=== PATIENT | male | born 2000 | race Caucasian/White ===

== ENCOUNTER 2023-04-24 23:21 | Emergency (ER) | payer SELFPAY ==
[~2023-04-24] VITALS: Ht 172.7 cm; Wt 122.5 kg
[2023-04-24 23:46] VITALS: BP_SYST 148; PULSE 88; RESP 18; TEMP 98.3; O2SAT 97
[2023-04-25 00:41] LABS: BASOPHILS # (AUTO) 0.1 K/uL (0.0-0.2); BASOPHILS % (AUTO) 0.4 % (0.0-2.0); EOSINOPHILS # (AUTO) 0.1 K/uL (0.0-0.4); EOSINOPHILS % (AUTO) 0.5 % (0.0-4.0); HEMATOCRIT 44.4 % (36-54); HEMOGLOBIN 14.6 g/dL (14.0-18.0); LYMPHOCYTES % (AUTO) 24.9 % (20.5-51.5); MEAN CORPUSCULAR HEMOGLOBIN 29 pg (27-31); MEAN CORPUSCULAR HGB CONC 33 % (32-36); MEAN CORPUSCULAR VOLUME 89 fL (79.0-98.0); MONOCYTES # (AUTO) 0.8 K/uL (0.0-1.0); MONOCYTES % (AUTO) 6.4 % (1.7-9.3); NEUTROPHILS # (AUTO) 8.1 K/uL (1.8-7.7); NEUTROPHILS % (AUTO) 67.8 % (40.0-70.0); PLATELET COUNT (AUTO) 266 K/uL (130-430); RED BLOOD CELL COUNT(AUTO) 5.01 MIL/uL (4.2-6.2); RED CELL DISTRIBUTION WIDTH 13.3 % (9.0-15.0); WHITE BLOOD COUNT (AUTO) 11.9 K/uL (4.8-10.8)
[2023-04-25 01:20] LABS: BILIRUBIN,URINE NEGATIVE (NEGATIVE); BLOOD, URINE 3+ (NEGATIVE); CLARITY/URINE CLEAR (CLEAR); COLOR,URINE YELLOW (YELLOW); GLUCOSE,URINE NEGATIVE (NEGATIVE); KETONES,URINE NEGATIVE (NEGATIVE); LEUKOCYTE ESTERASE ,URINE 2+ (NEGATIVE); NITRITE, URINE NEGATIVE (NEGATIVE); PROTEIN URINE 3+ (NEGATIVE); UROBILINOGEN,URINE 0.2 (0.2-1.0)
[2023-04-25 01:24] LABS: ALBUMIN 3.4 g/dL (3.4-4.8); CALCIUM 9.4 mg/dL (8.4-11.0); CREATININE 1.03 mg/dL (0.55-1.30); POTASSIUM 3.9 mmol/L (3.5-5.1); TOTAL BILIRUBIN 0.5 mg/dL (0.0-1.0)
[2023-04-25 01:50] LABS: BACTERIA,URINE MODERATE /HPF (None Seen); RBC,URINE >100 /HPF (0-3); WBC,URINE >100 /HPF (0-3)
[2023-04-25] MEDS ORDERED: cefTRIAXone 2 GM VIAL ONE (02:55)
[2023-04-25] MEDS ORDERED: CIPR500T5 PO (03:28)
[2023-04-25 03:42] VITALS: BP_SYST 148; PULSE 84; RESP 18; TEMP 98.3; O2SAT 97
== END 2023-04-25 03:42 | disposition home or self-care (01) ==
LOC: SED 23:21
DX: R10.84 Generalized abdominal pain (principal); Q61.3 Polycystic kidney, unspecified; N15.9 Renal tubulo-interstitial disease, unspecified; Z79.899 Other long term (current) drug therapy
CPT/HCPCS: 99285; 80053; 81000; 85025; 87040; 87086; 36415; 83605; 74176; 96365; 76376; J0696